=== PATIENT | female | born 1960 | race Caucasian/White ===

== ENCOUNTER 2023-06-15 14:52 | Outpatient (AMB) | payer MEDICAID, SELFPAY ==
[2023-06-15 15:05] VITALS: BP 148/80; PULSE 77; O2SAT 95; BMI 54.6
--- NOTE | 2023-06-15 15:05 | MHC.OFFVIS ---
Intake Vital Signs 06/15/23 15:05 Height 5 ft 6 in Weight 338 lb 2 oz BMI 54.6 BP 148/80 H Blood Pressure Location Lt brachial Position Sitting Pulse 77 Pulse Source Pulse Oximeter Pulse Oximetry (%) 95 Oxygen Delivery Method Room Air Intake Visit Reasons: [employer]: Daytime Somnolence / Falling asleep driving Intake Note: Pt presents to the office today for a new patient visit for daytime somnolence/falling asleep while driving. Pt is accompanied by her . Pt states when her is driving she always falls asleep. Pt states she has always had trouble sleeping since her middle 40s. Pt states she has bad arthritis and its hard to sleep due to waking up in pain. Accompanied by: Spouse Allergies clindamycin Allergy (Intermediate, Verified 06/15/23 15:08) Hives gluten Allergy (Intermediate, Verified 06/15/23 15:08) Diarrhea HPI HPI Comments History of Present Illness Details 63 y/o female patient presents for new in-person visit for sleep consultation. Pt reports difficulty falling asleep and staying sleep. She has anxiety and she can't stop thinking. She also has arthritis and arthritic pain wakes her up in the middle of night. She snores and has gasping arousals, nocturia. Pt has non refreshing sleep with daytime sleepiness. Pt had a sleep study about 10 years ago, but it was negative for sleep apnea but also lack of REM sleep. She gained more than 60 lb since the last sleep study. Sleep questionnaire: Have you ever been diagnosed with a sleep disorder? No. Have you ever had a sleep study in the past? Yes, twice 8-10 years ago. Have you ever been treated for a sleep disorder? No. Do you take medications for a sleep disorder? No. Do you snore? Yes. Do you wake up gasping at night? Yes. Do you have episodes of apneas? Yes. If yes, are they witnessed? Yes. Do you have episodes of nocturnal chest pain or dyspnea? No. Do you have difficulty initiating sleep? Yes. Do you have difficulty maintaining sleep? Yes. Do you wake up tired? Yes, all the time. Do you have headaches upon awakening? Yes, a lot. Do you wake up with dry mouth or throat? Yes. Do you have GERD? No. Do you have nocturia? Yes. Do you have nocturnal leg cramps? Yes. Do you have symptoms of restless legs? No. Do you act out your dreams? Yes, more lately. Sleep hygiene questionnaire: What is your usual sleep routine? N/A Usual bedtime is at ; Usual wake up time is at 5-9 am. Do you take naps? Yes. Is your sleep environment cool, dark, and quiet? Yes. Do you exercise? No. Do you take caffeine or other stimulants? 2-4 cups of coffee Do you use electronics in bed? Yes. What is your work schedule? N/A. Hypersomnolence questionnaire: Do you have daytime tiredness or fatigue? Yes. Do you easily fall asleep when inactive? Yes. Have you ever had episodes of sudden weakness? No. Have you ever had episodes of sudden weakness associated with strong emotions? No. PFSH Surgical History (Updated 06/15/23 @ 15:09 by Darlin Rodriguez MA) Hx of knee surgery Family History (Updated 06/15/23 @ 15:13 by Darlin Rodriguez MA) Father Lung cancer Heart problem Mother Kidney problem Paternal Grandmother Diabetes Social History (Updated 06/15/23 @ 15:09 by Darlin Rodriguez MA) Household Members: Spouse Housing: House Alcohol intake: never Patient Tobacco Use Status: Never used Tobacco Review of Systems Const All systems reviewed & are unremarkable except as noted in HPI and below ENT Reports Normal hearing present Neuro Reports Normal hearing present Physical Exam Vital Signs: Last Vital Signs Pulse 77 06/15/23 15:05 BP 148/80 H 06/15/23 15:05 Pulse Ox 95 06/15/23 15:05 Oxygen Delivery Method Room Air 06/15/23 15:05 BMI result Body Mass Index 54.6 Const General: cooperative and tired appearing Nutritional Appearance: obese Orientation/consciousness: patient oriented x3 Neck Neck: Yes full ROM and Yes supple Resp Effort & Inspection: normal respiratory effort and able to speak in complete sentences Neuro General: patient oriented x3 Cranial nerves: Yes Bilaterally intact EOM present, Yes Normal facial strength present, Yes Midline tongue present, Yes Symmetric palate elevation present, Yes Normal hearing present, Yes Ability to bilaterally rotate head present and Yes Ability to bilaterally elevate shoulders present Cognition (Neuro): normal cognition Gait exam (Neuro): Antalgic gait present Motor exam (neuro): 5/5 motor strength present throughout, Pronator motor function not present and no tremor noted Psych Appearance: grossly normal Mental Status: mental status grossly normal Speech and movement: Normal speech and movement present Affect: normal affect Attitude: cooperative Assessment & Plan Assessment & Plan (1) REM sleep behavior disorder: Code(s): G47.52 - REM sleep behavior disorder (2) Daytime hypersomnia: Code(s): G47.10 - Hypersomnia, unspecified (3) Loud snoring: Code(s): R06.83 - Snoring Plan Pt is advised to undergo in lab sleep study to assess for sleep apnea. Will f/u with pt after study to discuss results and appropriate treatment options. Sleep hygiene education provided. Advised patient to increase daily physical activities, limit daytime nap and electronic use before bedtime. Advised patient to try magnesium, calcium and vitamin D supplement. Pt to call with any worsening concerns or questions. Orders: Orders RT PSG in-lab sleep study Today E66.01 - Morbid (severe) obesity due to excess calories, G47.10 - Hypersomnia, unspecified, G47.52 - REM sleep behavior disorder, R06.83 - Snoring Coding Level of Care Code New Pt Level 4 (85601) Diagnoses REM sleep behavior disorder G47.52 Daytime hypersomnia G47.10 Loud snoring R06.83
== END 2023-06-15 15:55 | disposition home or self-care (01) ==
PROVIDERS: PCP Internal Medicine; Referring Provider Internal Medicine; Visit Provider Nurse Practitioner Family
DX: G47.52 REM sleep behavior disorder (principal); G47.10 Hypersomnia, unspecified; R06.83 Snoring
CPT/HCPCS: 99204

== ENCOUNTER → 2023-06-15 14:52 | Outpatient (BNVA) | payer MEDICAID, SELFPAY | PROVIDERS: PCP Internal Medicine; Referring Provider Internal Medicine; Visit Provider Nurse Practitioner Family | DX: R06.83 Snoring (principal); G47.10 Hypersomnia, unspecified; G47.52 REM sleep behavior disorder; E66.01 Morbid (severe) obesity due to excess calories; Z68.43 Body mass index [BMI] 50.0-59.9, adult | CPT/HCPCS: 99212 ==

== ENCOUNTER 2023-06-29 09:12 | Emergency (ER) | payer MEDICAID, SELFPAY ==
--- NOTE | ~2023-06-29 | XR_ITS ---
EXAMINATION: XR LUMBOSACRAL SPINE CLINICAL INFORMATION: Low back pain left greater than right. History of bulging disc COMPARISON: None available. TECHNIQUE: Three views of the lumbosacral spine. FINDINGS: There is normal lumbar lordosis. The vertebral heights and alignment is normal. There is mild ventral spondylosis throughout lumbar spine. No visible acute fracture or dislocation seen. The SI joints are symmetrical. XR/XR lumbar spine 2-3V IMPRESSION: Mild ventral spondylosis throughout lumbar spine. No visible acute fracture, dislocation or lytic process seen.
[2023-06-29 09:39] VITALS: BP 131/80; PULSE 79; RESP 18; TEMP 37; O2SAT 94; BMI 53.3
--- NOTE | 2023-06-29 10:31 | ED.BACK ---
HPI - Back Pain/Injury General Chief Complaint: Back Pain/Injury Stated Complaint: l hip pain down leg Time Seen by Provider: 06/29/23 09:46 Source: patient Mode of arrival: ambulatory Limitations: no limitations History of Present Illness HPI Narrative: Patient is a 63-year-old female presenting to the emergency department with complaint of left lower back pain radiating down left upper leg. States her symptoms began several weeks ago but have increased in severity since Monday. Reports that pain begins in her left lower back and radiates to left posterior lateral upper leg with associated tingling. She denies any fevers. She denies any saddle anesthesia, does report baseline urinary incontinence but denies any new or worsening bowel or bladder incontinence. She denies recent falls or other trauma. States she has been in the process of moving and packing. Used Tylenol and ibuprofen with little relief. Reports that she has had difficulty standing and ambulating due to severity of pain today. Reports history of bulging disc. MD elicited complaint: back pain Pertinent past history: prior back pain Onset (ago): week(s) Timing: constant and progressively worsening Severity: severe Pain scale (0-10): 10 Quality: burning and sharp Location: lumbar spine Radiation: left upper leg Exacerbating factors: sitting upright and walking Relieving factors: supine Associated symptoms: parasthesias Treatments prior to arrival: NSAIDS and acetaminophen Work related injury: No Related Data Home Medications Medication Instructions Recorded Confirmed meloxicam 15 mg tablet 15 mg PO DAILY 06/15/23 sertraline 100 mg tablet 150 mg PO DAILY 06/15/23 Previous Rx's Medication Instructions Recorded lidocaine 5 % topical patch 1 patch topical DAILY #15 ea 06/29/23 prednisone 50 mg tablet 50 mg PO DAILY #4 tabs 06/29/23 Allergies Allergy/AdvReac Type Severity Reaction Status Date / Time clindamycin Allergy Intermediate Hives Verified 06/15/23 15:08 gluten Allergy Intermediate Diarrhea Verified 06/15/23 15:08 Review of Systems Review of Systems: As per HPI. Yes all other systems are reviewed and are negative Constitutional: Constitutional: Reports as per HPI PMFSH Past Medical History Surgical History (Updated 06/15/23 @ 15:09 by Darlin Rodriguez MA) Hx of knee surgery Family History Family History (Updated 06/15/23 @ 15:13 by Darlin Rodriguez MA) Father Lung cancer Heart problem Mother Kidney problem Paternal Grandmother Diabetes Social History Social History (Updated 06/15/23 @ 15:09 by Darlin Rodriguez MA) Household Members: Spouse Housing: House Alcohol intake: never Patient Tobacco Use Status: Never used Tobacco Smoked in Last 30 Days: No Use of substances other than those prescribed or required for medical reasons: No Advance Directives: No Physical Exam Vital Signs: Vital Signs: Last Vital Signs Temp 98.6 F 06/29/23 09:39 Pulse 79 06/29/23 09:39 Resp 18 06/29/23 09:39 BP 131/80 06/29/23 09:39 Pulse Ox 94 06/29/23 09:39 O2 Del Method Room Air 06/29/23 09:39 BMI result Body Mass Index 53.3 Vital signs have been reviewed and appear to be correct. Blood pressure normal. Heart rate normal. Respiratory rate normal. Temperature normal. Oxygen saturation normal. Const: General: cooperative, healthy appearing, no acute distress, alert and awake; No acute distress Nutritional Appearance: obese morbidly obese Orientation/consciousness: oriented to person, oriented to place, oriented to time and patient oriented x3 Limitations: no limitations HEENT: Head: Yes normocephalic and Yes atraumatic Ears: external ears normal General nose exam: Normal external nose present Face and sinus: Yes face symmetric Mouth: oropharynx normal and moist mucous membranes Throat: Yes uvula midline Eyes: Pupils: Equal, round and reactive pupils present Neck: Neck: Yes normal visual inspection, Yes no meningeal signs and Yes supple Resp: Effort & Inspection: normal respiratory effort and able to speak in complete sentences Auscultation: clear to auscultation bilaterally Cardio: Rate: regular rate Rhythm: regular rhythm Heart sounds: S1 normal heart sound present and S2 normal heart sound present GI: Palpation (GI): Soft to palpation and nontender Auscultation: normoactive bowel sounds : General: Yes no CVA tenderness Back/Spine/Pelvis: Back: no CVA tenderness Thoracic/Lumbar Spine: thoracic and lumbar spine normal to inspection, thoraco-lumbar ROM normal, No thoracic spinal tenderness, lumbar spinal tenderness and straight leg raise positive left Pelvis: no pain with anterior-posterior compression Sacroiliac joints: on the left tender to palpation Skin: General skin exam: elasticity normal and turgor normal Neuro: General: oriented to person, oriented to place, oriented to time, patient oriented x3, tone normal, moves all extremities, Normal light touch and pain sensation, no meningeal signs, no focal motor deficits, CN's II-XI intact bilaterally and deep tendon reflexes 2+ bilaterally Cranial nerves: Yes Equal, round and reactive pupils present Cognition (Neuro): normal cognition Motor exam (neuro): 5/5 motor strength present throughout Sensory Exam: Normal double simultaneous stimulation for sensation Extrem: General: Yes full ROM, Yes no pedal edema and Yes no calf tenderness Psych: Mental Status: mental status grossly normal Affect: normal affect Thought process: Normal thought process present Medications Administered Discontinued Medications Generic Name Dose Route Start Last Admin Trade Name Alberq PRN Reason Stop Dose Admin Ketorolac Tromethamine 30 mg 06/29/23 10:36 06/29/23 10:50 Ketorolac Tromethamine 30 Mg/Ml Vial IM 06/29/23 10:37 30 mg ONCE ONE Administration Prednisone 50 mg 06/29/23 10:36 06/29/23 10:50 Prednisone 10 Mg Tablet PO 06/29/23 10:37 50 mg ONCE ONE Administration Medical Decision Making Medical Decision Making MDM Narrative: Patient is a 63-year-old female presenting to the emergency department with complaint of left lower back pain radiating down left upper leg. On exam patient is awake, A+Ox3, VS WNL, afebrile, normal neurological exam without focal deficits, physical exam findings as above. Given reported symptoms and physical exam findings, initial differential includes lumbar radiculopathy, lumbar strain, disc herniation, osteoarthritis, spondylosis. No red flag findings concerning for cord compression, cauda equina, spinal epidural abscess. X-ray notable for mild ventral spondylosis throughout lumbar spine without acute fracture, dislocation, or lytic process seen. My interpretation is in agreement with the radiologist's interpretation. Results discussed with patient and all questions answered. Patient able to ambulate independently with steady gait in the emergency department. Will discharge patient home with course of prednisone and topical lidocaine patches. Instructed patient to follow-up with primary care provider. Advised patient to apply ice for 10-15 minutes at a time several times daily. Return precautions discussed at bedside. Patient verbalized understanding of and agreement with plan. Differential Diagnosis Differential Diagnoses: The differential diagnosis associated with the presentation includes As per MDM. Independent Interpretation I performed an independent interpretation of an: Plain X-Ray Interpretation: Mild ventral spondylosis throughout lumbar spine without acute abnormalities Radiology Impression Discussion of test interpretation with radiology: I have reviewed the radiologist's reading. Radiologist Impression: XR/XR lumbar spine 2-3V IMPRESSION: Mild ventral spondylosis throughout lumbar spine. No visible acute fracture, dislocation or lytic process seen. External Record Review External record reviewed: Inpatient record, Office record and Outpatient record Prescription Management I considered prescription management with: Pain Medication and Other Discharge Plan Discharge Clinical Impression: Lumbar radiculopathy, Lumbar spondylosis Patient Disposition: Home, Self-Care Instructions: Osteoarthritis (DC), Lumbar Radiculopathy (ED) Additional Instructions: You were evaluated in the emergency department today for back pain. Your evaluation did not show signs of medical conditions requiring emergent intervention at this time. Your x-ray did show evidence of degenerative changes in your lumbar spine. You are being prescribed a short course of steroids (prednisone) to decrease inflammation. DO NOT TAKE NSAIDs (ibuprofen, naproxen, etc) while taking the prednisone. Once you have completed the prednisone you may resume use of NSAIDs. You have been prescribed 5% topical lidocaine patches which you can wear for up to 12 hours in a 24 hour period. Do not apply heat directly over the patches. Please schedule an appointment for follow-up with your primary care physician this week for further evaluation of your symptoms. Return to the emergency department if you experience worsening back pain, difficulty walking, fevers, numbness, tingling, incontinence, groin numbness or tingling, or any other concerning symptoms. Prescriptions: New prednisone 50 mg tablet 50 mg PO DAILY Qty: 4 0RF lidocaine 5 % adhesive patch,medicated 1 patch topical DAILY Qty: 15 0RF Rx Instructions: leave on most painful area for up to 12 hrs No Action sertraline 100 mg tablet 150 mg PO DAILY meloxicam 15 mg tablet 15 mg PO DAILY
[2023-06-29] MEDS: predniSONE 10 MG TABLET 50 MG PO (10:50)
[2023-06-29] MEDS: Ketorolac Tromethamine 30 MG/ML VIAL IM (10:50)
== END 2023-06-29 12:31 | disposition home or self-care (01) ==
PROVIDERS: Emergency Provider Emergency Medicine Emergency Medical Services; PCP Internal Medicine
DX: M47.816 Spondylosis without myelopathy or radiculopathy, lumbar region (principal)
CPT/HCPCS: 72100; 96372; 99284; J1885